=== PATIENT | female | born 1955 | race Caucasian/White ===

== ENCOUNTER 2019-01-21 07:48 | Day surgery (SDC) | payer OTHER ==
[~2019-01-21 07:48] MED LIST: ACETAMINOPHEN 1,000 MG/100 ML BTL IVPB ONE; CEFAZOLIN 1G VIAL IVP ONE; CEFAZOLIN 2 Gram 2 GM/50 ML BAG IVPB ONE; CELECOXIB 100 MG CAPSULE PO ONE; FAMOTIDINE 20MG TABLET PO ONE; METOCLOPRAMIDE 10 MG TABLET PO ONE; SCOPOLAMINE 1 PATCH TDSY TD ONE; VANCOMYCIN HCL 1 MG in DEXTROSE 5 % IN WATER 250 ML IVPB ONE; WATER STERILE FOR INJECTION 20 ML VIAL MC ONE
[2019-01-21] MEDS ORDERED: BUPIVACAINE LIPOSOME 266MG/20ML VIAL IV ONE (07:49)
[2019-01-21] MEDS ORDERED: BUPIVACAINE 0.5% W/EPI MPF 30 ML VIAL IVP ONE (07:49)
[2019-01-21] MEDS ORDERED: ROPIVACAINE HCL (NAROPIN) /PF 5MG/ML 20ML VIAL IV ONE (07:49)
[2019-01-21] MEDS ORDERED: MIDAZOLAM HCL 2MG/2ML VIAL IV ONE (07:49)
[2019-01-21] MEDS ORDERED: LIDOCAINE 2% MDV (20MG/ML) 20ML VIAL IV ONE (07:49)
[2019-01-21] MEDS ORDERED: VANCOMYCIN HCL 1 GM VIAL IVPB ONE (07:49)
[2019-01-21] MEDS ORDERED: DEXAMETHASONE 4 MG/ML 1ML VIAL IVP ONE (07:49)
[2019-01-21] MEDS ORDERED: KETAMINE HCL 100MG/1ML VIAL INJ ONE (07:49)
[2019-01-21] MEDS ORDERED: TRANEXAMIC ACID 1,000 MG/10 ML ML IV ONE (07:49)
[2019-01-21] MEDS ORDERED: PROPOFOL 10 MG/ML VIAL IV ONE (07:49)
[2019-01-21] MEDS ORDERED: HYDROMORPHONE HCL 2 MG/ML VIAL IM PRN ×2 (08:18)
[2019-01-21] MEDS ORDERED: NALOXONE 0.4 MG/1 ML VIAL IVP PRN (08:18)
[2019-01-21] MEDS ORDERED: BISACODYL 10 MG SUPP RC PRN (08:18)
[2019-01-21] MEDS ORDERED: ONDANSETRON HCL IV 4 MG/2 ML VIAL IVP PRN (08:18)
[2019-01-21] MEDS ORDERED: HYDROCODONE/APAP 7.5/325MG TABLET PO PRN (08:18)
[2019-01-21] MEDS ORDERED: METOCLOPRAMIDE HCL 10 MG/2 ML VIAL IVP PRN (08:18)
[2019-01-21] MEDS ORDERED: MAGNESIUM HYDROXIDE 30 ML UDC PO PRN (08:18)
[2019-01-21] MEDS ORDERED: ZOLPIDEM TARTRATE 5 MG TABLET PO PRN (08:18)
[2019-01-21] MEDS ORDERED: KETOROLAC 30 MG/ML VIAL IVP PRN ×2 (08:18)
[2019-01-21] MEDS ORDERED: PROMETHAZINE HCL 12.5 MG in 0.9 % SODIUM CHLORIDE 100ML 50 ML IVPB PRN (08:18)
[2019-01-21] MEDS ORDERED: AL HYDROX/MAG HYDROX 30ML UD PO PRN (08:18)
[2019-01-21] MEDS ORDERED: ACETAMINOPHEN W/ CODEINE 300MG/60MG TABLET PO PRN (08:18)
[2019-01-21] MEDS ORDERED: ACETAMINOPHEN 325 MG TAB PO PRN (08:18)
[2019-01-21] MEDS ORDERED: TRAMADOL HCL 50 MG TABLET PO PRN ×2 (08:18)
[2019-01-21] MEDS ORDERED: DIPHENHYDRAMINE HCL 25 MG CAPSULE PO PRN (08:18)
[2019-01-21] MEDS ORDERED: ACETAMINOPHEN W/ CODEINE 300MG/30MG TABLET PO PRN ×2 (08:18)
[2019-01-21] MEDS ORDERED: HYDROCODONE/APAP 5/325MG TABLET PO PRN ×2 (08:18)
[2019-01-21 08:40] LABS: ABO GROUP A; ANTIBODY SCREEN NEGATIVE (NEGATIVE); RH TYPE NEGATIVE
[2019-01-21] MEDS ORDERED: RINGERS SOLUTION,LACTATED 1,000 ML IV ONE ×2 (11:30→13:45)
[2019-01-21] MEDS ORDERED: VANCOMYCIN HCL 3,000 MG in RINGERS SOLUTION,LACTATED 3,000 ML IVPB ONE (11:30)
[2019-01-21] MEDS ORDERED: BUPIVACAINE 0.5% W/EPI MPF 30 ML VIAL SQ ONE (12:04)
[2019-01-21] MEDS ORDERED: BUPIVACAINE LIPOSOME 266MG/20ML VIAL SQ ONE (12:04)
[2019-01-21] MEDS ORDERED: DEXTROSE 5 % AND 0.9 % NACL 1,000 ML IV PRN (12:30)
[2019-01-21] MEDS: FERROUS SULFATE 325 MG TAB PO SCH ×2 (14:58→21:37)
[2019-01-21] MEDS: DOCUSATE SODIUM 100 MG CAPSULE PO SCH ×2 (14:58→21:37)
[2019-01-21] MEDS: LISINOPRIL 10 MG TABLET PO SCH (15:02)
--- NOTE | 2019-01-21 16:02 | Rehab Evaluation ---
Patient Information - Patient Information Diagnosis: DJD L Knee Ordered Treatment: PT Evaluate and Treat Status: Initial Evaluation Surgery: Yes (Left TKA) Date of Surgery: 01/21/19 Past Medical/Surgical Hx: PAST MEDICAL/SURGICAL HISTORY Past Surgical History BILAT FOOT SX APPY 2010 RIGHT SHOULDER REBUILD 2010 LEFT SHOULDER REBUILD 2010 LEFT KNEE SCOPE PMH - Respiratory Hx Respiratory Disorders Yes Hx Bronchitis Yes: NOTHING RECENT PMH - Cardiovascular Hx Cardiovascular Disorders Yes Hx Hypertension Yes: GOES UP WITH STRESS Exercise Tolerance Good PMH - Neuro Hx Neurological Disorders Yes Hx Headaches Yes PMH - GI Hx Gastrointestinal Disorders Yes Hx Abdominal Pain Yes: WITH STRESS Hx Gastroesophageal Reflux Yes: OCCASSIONALLY Hx Ulcer Yes PMH - Hx Genitourinary Disorders Yes Hx Bladder Problem Yes: URINE FREQUENCY SOME TIMES LEAKS PMH - Endocrine Hx Endocrine Disorders No PMH - Musculoskeletal Hx Musculoskeletal Disorders Yes Hx Arthritis Yes: ALL OVER PMH - Psych Hx Psychiatric Problems Yes Hx Anxiety Yes: SITUATIONAL PMH - Hematology/Oncology Hx Hematology/Oncology No Disorders Premorbid Status: Detail (Patient reports that she is currently on disability.) Social History: Detail (Patient lives in 2 story home with . Patient reports that after her discharge from the hospital, she plans on not using both levels immediately after surgery. There is a bedroom and bathroom that she can use on the main floor. Entrance of the home has 4 steps with one rail on the right. Patient reports that she has a tub/shower combination without any grab bars in the shower, but patient states that she has a hand-held shower and shower bench to use at home. Patient does report that she has an elevated toilet but with no grab bars. Patient reports that currently owns a walker and a single-point cane. She is expecting to leave from the hospital in an SUV and is currently scheduled for home physical therapy for 2 weeks. Patient reports that her will help with assistance with meals and transportation following discharge from hospital.) - Time With Patient Total Time Spent With Patient (Min): 20 Subjective Information - Subjective Information Per Patient (Patient reports that she is currently in minimal pain. Slight increase in pain in left knee following ambulation, as expected s/p surgery.) Objective Data - Mental Status Patient Orientation: Oriented x3 - Visual Perception Appears within normal limits for therapeutic activities - ROM Not within normal limits (Patient's range of motion is limited in left lower extremity, as expected following s/p surgery. Patient's right lower extremity was assessed functionally with bed mobility and ambulation and was determined to be within functional limits.) - Strength/Tone Not within normal limits (Patient's left lower extremity was not assessed with manual muscle test due to s/p surgery. Patient's right lower extremity was assessed with SLR, bed mobility, transfer sit to stand, and with ambulation and was found to be within functional limits.) - Bed Mobility Independent (Patient completed transfer from supine to sitting L EOB with supervision x1. Patient reported slight lightheadedness once sitting EOB and rested for a couple minutes prior to transfering into standing.) - Transfers Independent (Patient completed sit to stand transfer from L EOB to standing using a 2-wheeled walker for support and CGAx2 for safety. Patient did not report any signs or symptoms of dizziness or lightheadedness once standing. Upon completion of evaluation, patient completed transfer from standing to sitting R EOB with supervision x1 for safety using 2-wheeled walker for support.) - Gait Detail (Patient ambulated total distance of 55 feet with CGAx1 for safety using 2-wheeled walker. Patient demonstrated antalgic gait with decreased heel strike and stride length on left lower extremity, as expected following surgery. Patient did demonstrated increased trunk flexion due to bearing weight through upper extremities to alleviate pressure off of left lower extremity.) Therapy Assessment - Therapy Assessment Detail (Patient appeared to be in high spirits following procedure and was motivated to participate in therapy. Patient was found to be independent with bed mobility with supervision required for safety. Transfers and ambulation required contact guard assistance due to patient reporting slight lightheadedness following the procedure to ensure patient's safety. Patient has equipment that will ease in transition home following discharge. Overall, patient did well and would benefit from follow up session to discuss exercises and assess stair mobility prior to discharge to home PT.) Problem List - Problem List Physical Therapy Problem List: Detail (1. Decreased range of motion in left lower extremity due to s/p surgery. 2. Decreased strength in left lower extremity due to s/p surgery. 3. Decreased activity tolerance due to s/p surgery. 4. Altered gait pattern due to compensation over time due to pain.) Goals - Goals Physical Therapy Goals: 1. Patient will ascend and descend 4 stairs with use of one railing with supervision x1 to aide in transition home prior to discharge. 2. Patient will be independent in home exercise program prior to discharge. 3. Patient will ambulate 75 feet using 2-wheeled walker with SBAx1 prior to discharge to promote patient's independence with ADL's. Prognosis - Prognosis Good (Patient appears motivated and reports that she wants to participate in therapy to feel better. Based on initial evaluation and patient's drive to regain independence, patient's prognosis is promising.) Plan - Plan Physical Therapy Plan: PT 1-2 a day prior to discharge home to home PT with focus of education on strengthening exercises, gait and stair training, transfers and bed mobility.
[2019-01-21] MEDS: ACETAMINOPHEN W/ CODEINE 300MG/60MG TABLET PO PRN ×2 (16:41→21:37)
[2019-01-21] MEDS: VANCOMYCIN HCL 1,000 MG in DEXTROSE 5 % IN WATER 250 ML IVPB SCH ×2 (20:35)
[2019-01-21] MEDS: OXYBUTYNIN CHLORIDE 5MG TABLET PO SCH (21:37)
[2019-01-22] MEDS: HYDROCODONE/APAP 7.5/325MG TABLET PO PRN ×3 (02:29→13:37)
[2019-01-22 06:29] LABS: HEMATOCRIT 34.7 % (35.0-47.0); HEMOGLOBIN 11.1 gm/dl (11.6-16.0)
[2019-01-22] MEDS: VANCOMYCIN HCL 1,000 MG in DEXTROSE 5 % IN WATER 250 ML IVPB SCH ×2 (09:27)
[2019-01-22] MEDS ORDERED: CELECOXIB 100 MG CAPSULE PO SCH (10:00)
[2019-01-22] MEDS ORDERED: RIVAROXABAN 10 MG TABLET PO SCH (10:00)
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
[2019-01-22] MEDS: OXYBUTYNIN CHLORIDE 5MG TABLET PO SCH (12:39)
[2019-01-22] MEDS: LISINOPRIL 10 MG TABLET PO SCH (12:39)
[2019-01-22] MEDS: DOCUSATE SODIUM 100 MG CAPSULE PO SCH (12:39)
[2019-01-22] MEDS: FERROUS SULFATE 325 MG TAB PO SCH (12:40)
--- NOTE | 2019-01-22 13:39 | Physical Therapy Tx Note ---
Physical Therapy Tx Note - Treatment Note Tolerated: Good Total Time Spent With Patient: 25 Physical Therapy Tx Note: Detail (Patient states she's feeling better than this morning, less nauseous. Patient transferred reclined to sitting independently. Patient ambulated 30 feet with wheeled walker CGA x1. Patient descended and ascended 3 steps with using handrail and walker CGA x1. Patient declined further ambulation due to fatigued. Patient transferred sit to supine independently. Patient performed the following exercises x5-10 reps each: ankle pumps, glut squeezes, quad sets, heel slides, SLR, and hamstring sets. Patient tolerated treatment well. Patient displays good understanding of ambulation, stair climbing, and HEP. Patient was left reclined in bed with call light within reach.) Physical Therapy Problem List: Detail (1. Decreased range of motion in left lower extremity due to s/p surgery. 2. Decreased strength in left lower extremity due to s/p surgery. 3. Decreased activity tolerance due to s/p surgery. 4. Altered gait pattern due to compensation over time due to pain.) Physical Therapy Goals: 1. Patient will ascend and descend 4 stairs with use of one railing with supervision x1 to aide in transition home prior to discharge.- partially met, 3 stairs completed. 2. Patient will be independent in home exercise program prior to discharge.-goal met. 3. Patient will ambulate 75 feet using 2-wheeled walker with SBAx1 prior to discharge to promote patient's independence with ADL's. -goal partially met Prognosis: Good Physical Therapy Plan: Patient discharged from inpatient PT at this time, feel patient could ambulate 75 feet with walker and ascend and descend 3 steps.
--- NOTE | 2019-01-25 13:20 | Operative Note ---
DATE OF SURGERY: 01/21/2019 PREOPERATIVE DIAGNOSIS: End-stage left knee arthrosis. POSTOPERATIVE DIAGNOSIS: End-stage left knee arthrosis. OPERATION: Left total knee arthroplasty. SURGEON: Daniel Wheeler M.D. ANESTHESIA: Spinal. OPERATIVE FINDINGS: [id number] medial compartment arthrosis. COMPONENTS PLACED: 2 grams of vancomycin, cemented [employer] Journey II Oxinium size 4 femoral component, size 3 tibial baseplate, a 10 mm thick poly insert, and a 29 mm cemented patella component. INDICATION: This is a 63-year-old female who is well known to myself. She is status post multiple procedures in the knee, arthroscopic surgery, injections, and failed nonoperative treatment. Scheduled for a knee replacement. I explained the risks and benefits to her in detail for the diagnosis and procedures, including, but not limited to, infection, nerve injury, vessel injury, pain, numbness, tingling in the knee, periprosthetic fracture, need for resection arthroplasty, components infected or loosened, nerve injury or vessel and blood clot, the need for further procedure, need for anticoagulation to prevent blood clots, risks associated with the medications, and all of her questions were clearly answered. The course was outlined and she agreed to proceed PROCEDURE: The patient was brought into the OR and placed in the supine position, and again, antibiotics given prior to surgery. Spinal anesthesia was induced and her left lower extremity and knee were prepped and draped in sterile fashion. The left knee was prepped with Chloraprep and draped. An intraoperative timeout was performed. Next, the leg was exsanguinated with Esmarch. The knee was flexed and the tourniquet was inflated to 250 mmHg pressure. We injected 0.5% Marcaine with epi, Exparel and tranexamic acid partial of our mixture in the subcutaneous area. The skin and subcutaneous tissue dissected down to the medial line of the skin flaps, incised the capsule medially along the medial border of the patella to the tibia tubercle. Incised the vastus medialis in line with its fibers in a mid vastus approach, elevated the capsule and subperiosteum medially, resected partial the retropatellar fat pad. Everted the patella and flexed the knee. She had [id number] medial compartment arthrosis and then drilled intracondylar, resected the ACL, drilled an intracondylar drill hole, inserted intramedullary guide luz maria with a 6 degree cutting block, aligned the distal femoral condyles, pinned in place and cut until it was 2 mm in position and cut the distal femoral condyle. Next, we placed a sizing jig distal femoral condyle, the size to be right on size 4. Through the previously-placed pin holes, we placed a size 4 cutting jig and we dialed in the anterior cuts so it would come out flush without notching. We cut that cut. It was a good flush cut and pinned in place and cut the remainder of the chamfer cuts in the usual fashion. Next, we placed a size 4 trial femoral component, centered it, pinned it in place and then removed osteophytes off the periphery and inserted the resection cut, reamed out with box osteotome with a cruciate bone block. Attention was turned to the tibia. Seated the spikes of the external alignment jig in the intertuberular groove off the center third of the tubercle 2 fingerbreadths distally off the end of the tibial cortex in reference for a 7 mm cut off the high lateral plateau. We pinned the cutting jig provisionally in place and we placed a drop luz maria and rechecked alignment of the cutting jig and the drop luz maria on the tibial anatomic access, crosspinned and completed fixation and cut the tibia. Next, we removed osteophytes off the posterior femoral condyles. Checked flexion and extension gaps and they sized up to a size 10, this allowed for 1 to 2 mm of varus valgus laxity in flexion and extension, overall alignment cuts and extension in the anatomic valgus orientation, with the alignment luz maria centered on the hip joint and ankle joint. Next, took the knee in flexion, sized the tibial baseplate to a size 3, replaced all trial components again, set the rotation tibial baseplate again in extension, using the alignment luz maria centered on the hip joint and ankle joint and marked with electrocautery aguilar off the laser aguilar on the tibial baseplate. Next, attention turned to the patella. We measured the patella to be 22 mm, set the cutting jig at 13 mm to allow for a 9 mm thick poly insert. We cut the patella, re-measured right on 13, chamfered off the lateral patellar facet, and medialized this as much as possible, measured to a 29 mm, drilled 3 peg holes and placed the trial patella component, did a trial range of motion. The patella tracked hands free, full extension and flexion to 150 degrees, again symmetric flexion and extension gap. We mixed cement. I took the knee in flexion, seated the tibial baseplate with the previously placed electrocautery aguilar, pinned in place, and reamed down, punched with the keel punch, then punched a keel hole. I placed the bone plug in the femoral canal hole. I changed gloves, irrigated copiously all bony surfaces, pulse lavaged with antibiotic solution, precoat bolsters and then impacted down the tibial component first, removing excess cement and then the femoral component, removing excess cement and placed a trial 11 mm thick poly insert, held the knee in extension and clamped down the patella component. Once the cement hardened, I then took the knee in flexion, distracted with the bone hook and sponge, removed excess cement on the edge of the components and irrigated copiously. Next, we injected the posterior capsule and recesses with 0.5% Marcaine with epi and Exparel and tranexamic acid mixture and then inserted the real tibial poly insert and verified it was interlocked medially and laterally. Final range of motion and stability were the same. Irrigated, and then closed the capsule using running #2 Quill sutures, closed the skin deep with 2-0 Vicryl and provisional sterile dressings applied. That code will be changed prior to discharge to a CARLINE dressing, likely tomorrow. An Prateek wrap. The patient tolerated the procedure well. No intraoperative complications. Sponge and needle counts were correct. To recovery room stable. Neuro is intact. He will be discharged to the floor and will be discharged tomorrow. Follow up in 2 weeks. AYDEN
== END 2019-01-22 13:40 | disposition home health service (06) ==
LOC: SUR 07:48 → MEDSURG 14:04 → SUR 01-22 13:40
PROVIDERS: ATTEND Orthopaedic Surgery
DX: M17.12 Unilateral primary osteoarthritis, left knee (principal); I10 Essential (primary) hypertension
CPT/HCPCS: 27447; 01402; 64447; 85018; 85014; 86900; 86901; 86850; J2405; J3490 ×6; J3370; J0690; C9290; J2795; 76942; 97110; 97530; 97535; J7042; J7060; J7120